=== PATIENT | female | born 1990 | race Caucasian/White ===

== ENCOUNTER 2022-06-29 06:02 | Emergency (ER) | payer OTHER, SELFPAY ==
--- NOTE | 2022-06-29 06:41 | PC.NURSE ---
covid swab sent to lab
[2022-06-29 06:49] VITALS: BP 120/75; PULSE 99; RESP 17; TEMP 37.1; O2SAT 97
[2022-06-29 06:56] VITALS: RESP 17
--- NOTE | 2022-06-29 07:01 | ED.GENADULT ---
HPI - General Adult General Chief complaint: Unspecified Stated complaint: possible Covid Time Seen by Provider: 06/29/22 07:01 Related Data Home Medications Medication Instructions Recorded Confirmed cyclobenzaprine 10 mg tablet 10 mg PO DAILY 06/29/22 06/29/22 famotidine 20 mg tablet 20 mg PO DAILY 06/29/22 06/29/22 Allergies Allergy/AdvReac Type Severity Reaction Status Date / Time No Known Allergies Allergy Verified 06/29/22 06:38 Course Vital Signs Vital signs: Vital Signs Temperature 37.1 C 06/29/22 06:49 Pulse Rate 99 06/29/22 06:49 Respiratory Rate 17 06/29/22 06:49 Blood Pressure 120/75 06/29/22 06:49 Pulse Oximetry 97 06/29/22 06:49 Oxygen Delivery Room Air 06/29/22 06:49 Temperature 37.1 C 06/29/22 06:49 Pulse Rate 99 06/29/22 06:49 Respiratory Rate 17 06/29/22 06:56 Blood Pressure 120/75 06/29/22 06:49 Pulse Oximetry 97 06/29/22 06:49 Oxygen Delivery Room Air 06/29/22 06:49 Medical Decision Making Vital Signs Vital Signs: Vital Signs Temperature 37.1 C 06/29/22 06:49 Pulse Rate 99 06/29/22 06:49 Respiratory Rate 17 06/29/22 06:49 Blood Pressure 120/75 06/29/22 06:49 Pulse Oximetry 97 06/29/22 06:49 Oxygen Delivery Room Air 06/29/22 06:49 Temperature 37.1 C 06/29/22 06:49 Pulse Rate 99 06/29/22 06:49 Respiratory Rate 17 06/29/22 06:56 Blood Pressure 120/75 06/29/22 06:49 Pulse Oximetry 97 06/29/22 06:49 Oxygen Delivery Room Air 06/29/22 06:49 Lab Data Labs: Lab Results 06/29/22 Range/Units 06:27 SARS-CoV-2 RNA (RT-PCR) Pending Discharge Plan Discharge Prescriptions: No Action cyclobenzaprine 10 mg tablet 10 mg PO DAILY famotidine 20 mg tablet 20 mg PO DAILY Follow-up/Referrals: UNKNOWN,DOCTOR [Primary Care Provider] -
--- NOTE | 2022-06-29 07:02 | ED.URI ---
HPI - URI/Sore Throat General Chief Complaint: Unspecified Stated Complaint: possible Covid Time Seen by Provider: 06/29/22 07:01 Source: patient and RN notes reviewed Mode of arrival: ambulatory Limitations: no limitations History of Present Illness MD elicited complaint: cough and nasal congestion Onset (ago): day(s) (2) Consistency: intermittent Severity: moderate Description of mucous: clear Able to tolerate fluids by mouth: Yes Exacerbating factors: nothing Relieving factors: nothing Associated symptoms: chills, myalgias, headache, nasal congestion and cough Treatments prior to arrival: none Related Data Home Medications Medication Instructions Recorded Confirmed cyclobenzaprine 10 mg tablet 10 mg PO DAILY 06/29/22 06/29/22 famotidine 20 mg tablet 20 mg PO DAILY 06/29/22 06/29/22 Allergies Allergy/AdvReac Type Severity Reaction Status Date / Time No Known Allergies Allergy Verified 06/29/22 06:38 Review of Systems Review of Systems: All systems reviewed & are unremarkable except as noted in HPI and below PMFSH Past Medical History Medical History (Updated 06/29/22 @ 07:18 by Michel Carbajal MD) GERD (gastroesophageal reflux disease) Muscle spasm Surgical History Surgical History (Updated 06/29/22 @ 07:10 by Michel Carbajal MD) No pertinent past surgical history Social History Social History (Updated 06/29/22 @ 07:10 by Michel Carbajal MD) Tobacco type: e-cigarettes/vaping Exam Const: General: healthy appearing, no acute distress and alert Nutritional Appearance: well nourished Orientation/consciousness: patient oriented x3 Limitations: no limitations HENMT: Head: normal to inspection Ears: external ears normal Eyes: Conjunctivae: conjunctivae normal Pupils: Equal, round and reactive pupils present EOM: EOMs intact bilaterally Neck: Neck: normal visual inspection Resp: Effort & Inspection: normal respiratory effort Auscultation: clear to auscultation bilaterally Cardio: Rate: regular rate Rhythm: regular rhythm GI: GI Palp: Yes Soft to palpation and No Tenderness to palpation present (GI) Auscultation: normal bowel sounds Back/Spine/Pelvis: Cervical Spine: cervical ROM normal Thoracic/Lumbar Spine: thoraco-lumbar ROM normal Skin: General skin exam: normal color Rashes: no rashes Neuro: General: patient oriented x3, moves all extremities, no focal motor deficits and CN's II-XI intact bilaterally Speech: normal speech Gait exam (Neuro): Normal gait present Extrem: General: normal to inspection and no clubbing, cyanosis or edema Psych: Mental Status: mental status grossly normal Affect: normal affect Attitude: cooperative Course Vital Signs Vital signs: Vital Signs Temperature 37.1 C 06/29/22 06:49 Pulse Rate 99 06/29/22 06:49 Respiratory Rate 17 06/29/22 06:49 Blood Pressure 120/75 06/29/22 06:49 Pulse Oximetry 97 06/29/22 06:49 Oxygen Delivery Room Air 06/29/22 06:49 Temperature 37.1 C 06/29/22 06:49 Pulse Rate 99 06/29/22 06:49 Respiratory Rate 17 06/29/22 06:56 Blood Pressure 120/75 06/29/22 06:49 Pulse Oximetry 97 06/29/22 06:49 Oxygen Delivery Room Air 06/29/22 06:49 MDM - URI/Sore Throat Lab Data Labs: Lab Results 06/29/22 Range/Units 06:27 SARS-CoV-2 RNA (RT-PCR) Positive A (Negative) Discharge Plan Discharge Clinical Impression: COVID-19 Patient Disposition: Home, Self-Care Condition: Stable Instructions: COVID-19 (Coronavirus Disease 2019) (ED) Additional Instructions: Drink plenty of fluids Gatorade or all sport or Powerade for electrolyte replacement. Tylenol Motrin as needed for fever body aches. self quarantine for 5 days then wear a mask every wary ago when you leave the house for another 5 days. Prescriptions: New ondansetron HCl 4 mg tablet 4 mg PO Q8H PRN (Reason: nausea and vomiting) Qty: 10 0RF No Action cyclobenzaprine 10 mg tablet
--- NOTE | 2022-06-29 07:10 | PC.NURSE ---
nurse to nurse report completed with ERIKA Garcia
[2022-06-29 07:14] LABS: SARS-CoV-2 RNA PCR Positive (Negative)
== END 2022-06-29 07:30 | disposition home or self-care (01) ==
PROVIDERS: Emergency Medicine; Emergency Provider Emergency Medicine
DX: U07.1 COVID-19 (principal); K21.9 Gastro-esophageal reflux disease without esophagitis; F17.290 Nicotine dependence, other tobacco product, uncomplicated
CPT/HCPCS: 99283; C9803; U0003; U0005

== ENCOUNTER 2022-07-06 13:13 | Emergency (ER) | payer OTHER, SELFPAY ==
[2022-07-06 13:23] VITALS: BP 110/64; PULSE 58; RESP 16; TEMP 36.3; O2SAT 98
[2022-07-06 13:41] LABS: Basophils Absolute Auto 0.01 K/mm3 (0.00-0.10); Basophils Percent Auto 0.2 % (0.0-1.0); Eosinophils Absolute Auto 0.03 K/mm3 (0.02-0.50); Eosinophils Percent Auto 0.5 % (1.0-6.0); Hematocrit 42.6 % (35.0-49.0); Hemoglobin 13.9 g/dL (12.0-15.0); Immature Granulocyte Absolute 0.02 K/mm3 (0.00-0.00); Immature Granulocyte Percent A 0.3 % (0.0-0.0); Lymphocytes Absolute Auto 1.44 K/mm3 (1.10-4.50); Lymphocytes Percent Auto 22.7 % (18.0-42.0); Mean Corpuscular HGB Conc 32.6 g/dL (32.0-36.0); Mean Corpuscular Hemoglobin 29.8 pg (27.0-31.0); Mean Corpuscular Volume 91.2 fL (78.0-102.0); Mean Platelet Volume 12.2 fl (9.2-11.8); Monocytes Absolute Auto 0.27 K/mm3 (0.10-0.90); Monocytes Percent Auto 4.3 % (2.0-11.0); Neutrophils Absolute Auto 4.6 K/mm3 (1.7-7.2); Platelet Count Result 173 K/mm3 (150-420); Red Blood Count 4.67 M/mm3 (4.20-5.40); Red Cell Distribution Width 12.8 % (11.6-14.4); White Blood Count 6.4 K/mm3 (4.8-10.8)
[2022-07-06] MEDS: SODIUM CHLORIDE 0.9% IV 1,000 ML 999 ML IV CONT (13:47)
[2022-07-06] MEDS: ONDANSETRON INJ 4 MG/2 ML VIAL IV PUSH (13:47)
[2022-07-06 13:57] LABS: Alanine Aminotransferase 114 U/L (14-59); Albumin Level 3.9 g/dL (3.4-5.0); Alkaline Phosphatase 67 U/L (46-116); Anion Gap 8 mmol/L (8-16); Aspartate Amino Transferase 32 U/L (15-37); Bilirubin,Total 0.4 mg/dL (0.00-1.00); Blood Urea Nitrogen 11 mg/dL (7-18); Calcium 9.3 mg/dL (8.5-10.1); Carbon Dioxide 27 mmol/L (21-32); Chloride 105 mmol/L (98-108); Estimated Glomerular Filt Rate > 60; Glucose 99 mg/dL (70-99); Osmolality Calculated 289 mOsm/kg (285-295); Potassium 3.6 mmol/L (3.5-5.1); Sodium 140 mmol/L (136-145); Total Protein 7.1 g/dL (6.4-8.2)
--- NOTE | 2022-07-06 14:05 | ED.DIZZY ---
HPI - Dizziness General Chief Complaint: Dizziness Stated Complaint: positive for covid 10 days ago dizzy and fatigue Time Seen by Provider: 07/06/22 13:16 Source: patient Mode of arrival: ambulatory Limitations: no limitations History of Present Illness HPI Narrative: This is a 31-year-old female that is status post COVID date 10 and did return to work but had feeling lightheaded in [place] with no fever or chills, with some nausea with no vomiting no abdominal pain no chest pain no shortness of breath no dysuria no hematuria no flank pain. MD elicited complaint: dizziness and lightheadedness Onset (ago): hour(s) Timing: gradual onset Severity: mild Description: lightheadedness Exacerbating factors: change in body position Relieving factors: rehydration Associated symptoms: nausea Related Data Home Medications Medication Instructions Recorded Confirmed cyclobenzaprine 10 mg tablet 10 mg PO DAILY 06/29/22 07/06/22 famotidine 20 mg tablet 20 mg PO DAILY 06/29/22 07/06/22 Allergies Allergy/AdvReac Type Severity Reaction Status Date / Time No Known Allergies Allergy Verified 07/06/22 13:27 Review of Systems Review of Systems: All systems reviewed & are unremarkable except as noted in HPI and below PMFSH Past Medical History Medical History GERD (gastroesophageal reflux disease) Muscle spasm Surgical History Surgical History No pertinent past surgical history Social History Social History Tobacco type: e-cigarettes/vaping Exam Const: General: healthy appearing and no acute distress HENMT: Head: normal to inspection Mouth: Yes Normal oral and palatal mucosa present Eyes: Conjunctivae: conjunctivae normal Direct Ophthalmoscopy: no photophobia Neck: Neck: normal visual inspection, no lymphadenopathy and no meningeal signs Chest: Chest palpation & inspection: normal inspection of the chest Resp: Effort & Inspection: normal respiratory effort Auscultation: clear to auscultation bilaterally Cardio: Rate: regular rate Rhythm: regular rhythm GI: Auscultation: normal bowel sounds Urinary Catheter: Urinary Catheter: patent and draining Back/Spine/Pelvis: Back: no CVA tenderness Skin: General skin exam: normal color Rashes: no rashes Wounds: no wounds Neuro: General: patient oriented x3, moves all extremities and no meningeal signs Extrem: General: normal to inspection and no clubbing, cyanosis or edema Psych: Mental Status: mental status grossly normal Affect: normal affect Course Course Emergency Course: Patient received IV fluids IV Zofran and Tylenol her symptoms have improved blood work was reviewed with patient. Vital Signs Vital signs: Vital Signs Temperature 36.3 C L 07/06/22 13:23 Pulse Rate 58 L 07/06/22 13:23 Respiratory Rate 16 07/06/22 13:23 Blood Pressure 110/64 07/06/22 13:23 Pulse Oximetry 98 07/06/22 13:23 Oxygen Delivery Room Air 07/06/22 13:23 Temperature 36.3 C L 07/06/22 13:23 Pulse Rate 58 L 07/06/22 13:23 Respiratory Rate 16 07/06/22 13:23 Blood Pressure 110/64 07/06/22 13:23 Pulse Oximetry 98 07/06/22 13:23 Oxygen Delivery Room Air 07/06/22 13:23 MDM - Dizziness Lab Data Result diagrams: 07/06/22 13:36 07/06/22 13:36 Labs: Lab Results 07/06/22 07/06/22 Range/Units 13:36 13:36 WBC 6.4 (4.8-10.8) K/mm3 RBC 4.67 (4.20-5.40) M/mm3 Hgb 13.9 (12.0-15.0) g/dL Hct 42.6 (35.0-49.0) % MCV 91.2 (78.0-102.0) fL MCH 29.8 (27.0-31.0) pg MCHC 32.6 (32.0-36.0) g/dL RDW 12.8 (11.6-14.4) % Plt Count 173 (150-420) K/mm3 MPV 12.2 H (9.2-11.8) fl Immature Gran % (Auto) 0.3 H (0.0-0.0) % Neut % (Auto) 72.0 H (50.0-70.0) % Lymph % (Auto) 22.7 (18.0-42.0) % [place] % (Auto)
[2022-07-06 14:46] VITALS: BP 137/61; PULSE 58; RESP 16; TEMP 36.4; O2SAT 98
== END 2022-07-06 14:47 | disposition home or self-care (01) ==
PROVIDERS: Emergency Provider Emergency Medicine; PCP Family Medicine
DX: E86.0 Dehydration (principal); R11.2 Nausea with vomiting, unspecified
CPT/HCPCS: 36415; 80053; 85025; 96361; 96374; 96375; 99284; J0131; J2405; J7030

== ENCOUNTER 2022-10-24 09:12 | Emergency (ER) | payer OTHER, SELFPAY ==
--- NOTE | ~2022-10-24 | XR_ITS ---
EXAMINATION: XR chest 1V portable INDICATION: Chest congestion TECHNIQUE: Portable AP chest at 0202 hours COMPARISON: None available FINDINGS: The lungs are free of acute opacities. No pleural effusion or pneumothorax. The cardiomedia stinal silhouette is normal. The visualized bones and soft tissues are unremarkable. IMPRESSION: 1. No acute cardiopulmonary abnormality. Reviewed, dictated and finalized at location [facility]
[2022-10-24 09:12] VITALS: BP 114/74; PULSE 81; RESP 18; TEMP 37.1; O2SAT 99
--- NOTE | 2022-10-24 09:14 | ED.URI ---
HPI - URI/Sore Throat General Chief Complaint: Upper Respiratory Infection Stated Complaint: fever, chest congestion Time Seen by Provider: 10/24/22 09:14 Source: patient Mode of arrival: ambulatory History of Present Illness HPI Narrative: 32-year-old female with a history of GERD, muscle spasms, COVID positive in June of 2022 presents to the ER with -- fever -- chest congestion -- Cough with purulent sputum -- dizziness on standing up she did a home COVID test which was noted to be negative yesterday. MD elicited complaint: fever, cough and nasal congestion Onset (ago): day(s) ( started yesterday.) Able to tolerate fluids by mouth: Yes Exacerbating factors: nothing Associated symptoms: denies other symptoms, fever and nasal congestion Treatments prior to arrival: none Related Data Allergies Allergy/AdvReac Type Severity Reaction Status Date / Time No Known Allergies Allergy Verified 10/24/22 09:20 Review of Systems Review of Systems: All systems reviewed & are unremarkable except as noted in HPI and below Constitutional: Constitutional: Reports as per HPI and Reports no additional constitutional complaints Eyes: Eyes: Reports as per HPI and Reports no additional eye complaints ENT: Reports system reviewed and no additional complaints, except as documented, Reports as per HPI and Reports nasal congestion Cardiovascular: Cardiovascular: Reports as per HPI and Reports no additional cardiovascular complaints Respiratory: Respiratory: Reports as per HPI, Reports no additional respiratory complaints, Reports chest congestion, Reports cough and Reports pain with cough Gastrointestinal: Gastrointestinal: Reports as per HPI and Reports no additional gastrointestinal complaints Genitourinary: Genitourinary: Reports no additional female genitourinary complaints and Reports as per HPI Comments: patient is currently on control. Musculoskeletal: Musculoskeletal: Reports no additional musculoskeletal complaints and Reports as per HPI Integumentary/Breasts: Skin/Breast: Reports system reviewed and no additional complaints, except as docu and Reports as per HPI Neurologic: Reports system reviewed and no additional complaints, except as documented and Reports as per HPI Psychiatric: Psychiatric: Reports no additional psychiatric complaints and Reports abnormal sleep pattern Endocrine: Endocrine: Reports no additional endocrine complaints and Reports as per HPI Hematologic/Lymphatic: Hematologic/Lymphatic: Reports no additional hematologic/lymphatic complaints and Reports as per HPI Allergic/Immunologic: Allergic/Immunologic: Reports no additional allergic/immunologic complaints and Reports as per HPI [facility] Past Medical History Medical History GERD (gastroesophageal reflux disease) Muscle spasm Surgical History Surgical History No pertinent past surgical history Social History Social History Tobacco type: e-cigarettes/vaping Exam Const: General: cooperative, healthy appearing and comfortable HENMT: Head: normal to inspection Ears: hearing grossly normal bilaterally Face/Nose/Sinus: Normal external nose present Face and sinus: normal facial exam and sinuses nontender Mouth: Yes Normal oral and palatal mucosa present Throat: posterior oropharynx normal Eyes: General: appearance normal, both eyes and all related structures Neck: Neck: normal visual inspection, full ROM, no lymphadenopathy and no meningeal signs Chest: Chest palpation & inspection: normal inspection of the chest Resp: Effort & Inspection: normal respiratory effort Auscultation: clear to auscultation bilaterally Cardio: Jugular venous distension: no JVD Rate: regular rate Rhythm: regular rhythm Heart sounds: S1 normal heart sound present and S2 normal heart sound
[2022-10-24 09:15] VITALS: BP 114/74; PULSE 81; RESP 18; TEMP 37.1; O2SAT 99
[2022-10-24 09:44] LABS: Basophils Absolute Auto 0.01 K/mm3 (0.00-0.10); Basophils Percent Auto 0.2 % (0.0-1.0); Eosinophils Absolute Auto 0.04 K/mm3 (0.02-0.50); Eosinophils Percent Auto 0.9 % (1.0-6.0); Hematocrit 42.2 % (35.0-49.0); Hemoglobin 13.7 g/dL (12.0-15.0); Immature Granulocyte Absolute 0.02 K/mm3 (0.00-0.00); Immature Granulocyte Percent A 0.4 % (0.0-0.0); Lymphocytes Absolute Auto 0.85 K/mm3 (1.10-4.50); Lymphocytes Percent Auto 18.9 % (18.0-42.0); Mean Corpuscular HGB Conc 32.5 g/dL (32.0-36.0); Mean Corpuscular Hemoglobin 30.1 pg (27.0-31.0); Mean Corpuscular Volume 92.7 fL (78.0-102.0); Mean Platelet Volume 10.8 fl (9.2-11.8); Monocytes Absolute Auto 0.36 K/mm3 (0.10-0.90); Neutrophils Absolute Auto 3.2 K/mm3 (1.7-7.2); Neutrophils Percent Auto 71.6 % (50.0-70.0); Platelet Count Result 165 K/mm3 (150-420); Red Blood Count 4.55 M/mm3 (4.20-5.40); Red Cell Distribution Width 13.1 % (11.6-14.4); White Blood Count 4.5 K/mm3 (4.8-10.8)
[2022-10-24 09:49] LABS: Add Urine Microscopic? YES; Appearance Urine Clear (Clear); Bilirubin Urine Negative (Negative); Blood Urine 1+ (Negative); Color Urine Yellow (Yellow); Glucose Urine UA Negative (Negative); Ketones Urine Negative (Negative); Leukocyte Esterase Ur Negative LEU/UL (Negative); Nitrate Urine Negative (Negative); Protein Urine Negative (Negative); Specific Grav Ur 1.025 (1.010-1.020); Urobilinogen Urine 0.2 mg/dL (0.2-1.0)
[2022-10-24 09:52] LABS: Pregnancy On Board Control Positive; Urine Pregnancy Test Negative
[2022-10-24 09:57] LABS: Bacteria Urine 1+ /hpf; Squamous Epithelial Cell Urine Few /hpf (Few); WBC Urine None seen /hpf (0-3)
[2022-10-24 09:58] LABS: Mucus Urine Few /lpf
[2022-10-24 10:01] LABS: Alanine Aminotransferase 34 U/L (14-59); Albumin Level 3.8 g/dL (3.4-5.0); Alkaline Phosphatase 56 U/L (46-116); Anion Gap 7 mmol/L (8-16); Aspartate Amino Transferase 14 U/L (15-37); Bilirubin,Total 0.3 mg/dL (0.00-1.00); Blood Urea Nitrogen 10 mg/dL (7-18); Calcium 8.9 mg/dL (8.5-10.1); Carbon Dioxide 27 mmol/L (21-32); Chloride 107 mmol/L (98-108); Estimated CRCL calculation 87 ml/min; Estimated Glomerular Filt Rate > 60; Glucose 106 mg/dL (70-99); Osmolality Calculated 291 mOsm/kg (285-295); Sodium 141 mmol/L (136-145); Total Protein 7.1 g/dL (6.4-8.2)
[2022-10-24 10:03] LABS: Lactic Acid Reflex 0.8 mmol/L (0.4-2.0)
[2022-10-24 10:04] LABS: Influenza Control Valid (Valid)
[2022-10-24 10:41] VITALS: BP 110/68; PULSE 83; RESP 16; TEMP 37.4; O2SAT 98
== END 2022-10-24 10:48 | disposition home or self-care (01) ==
PROVIDERS: Emergency Provider Internal Medicine Critical Care Medicine; PCP Family Medicine
DX: J06.9 Acute upper respiratory infection, unspecified (principal); J20.9 Acute bronchitis, unspecified; F17.209 Nicotine dependence, unspecified, with unspecified nicotine-induced disorders
CPT/HCPCS: 36415; 71045; 80053; 81001; 81025; 83605; 85025; 87804; 99283

== ENCOUNTER 2022-11-04 17:13 | Emergency (ER) | payer OTHER, SELFPAY ==
[2022-11-04 17:19] VITALS: BP 117/73; PULSE 83; RESP 16; TEMP 36.7; O2SAT 99
[2022-11-04 17:39] LABS: Basophils Absolute Auto 0.01 K/mm3 (0.00-0.10); Basophils Percent Auto 0.2 % (0.0-1.0); Eosinophils Absolute Auto 0.03 K/mm3 (0.02-0.50); Eosinophils Percent Auto 0.5 % (1.0-6.0); Hemoglobin 14.5 g/dL (12.0-15.0); Immature Granulocyte Absolute 0.02 K/mm3 (0.00-0.00); Immature Granulocyte Percent A 0.3 % (0.0-0.0); Lymphocytes Absolute Auto 1.33 K/mm3 (1.10-4.50); Lymphocytes Percent Auto 20.7 % (18.0-42.0); Mean Corpuscular Volume 91.1 fL (78.0-102.0); Mean Platelet Volume 10.6 fl (9.2-11.8); Monocytes Absolute Auto 0.34 K/mm3 (0.10-0.90); Monocytes Percent Auto 5.3 % (2.0-11.0); Neutrophils Absolute Auto 4.7 K/mm3 (1.7-7.2); Platelet Count Result 242 K/mm3 (150-420); Red Blood Count 4.83 M/mm3 (4.20-5.40); Red Cell Distribution Width 12.9 % (11.6-14.4); White Blood Count 6.4 K/mm3 (4.8-10.8)
[2022-11-04 17:43] LABS: Add Urine Microscopic? YES; Appearance Urine Slightly Cloudy (Clear); Bilirubin Urine Negative (Negative); Blood Urine 3+ (Negative); Color Urine Yellow (Yellow); Glucose Urine UA Negative (Negative); Ketones Urine Negative (Negative); Leukocyte Esterase Ur Negative LEU/UL (Negative); Nitrate Urine Negative (Negative); Protein Urine Negative (Negative); Specific Grav Ur >= 1.030 (1.010-1.020); Urobilinogen Urine 0.2 mg/dL (0.2-1.0)
--- NOTE | 2022-11-04 17:46 | ED.GENADULT ---
HPI - General Adult General Chief complaint: Nausea/Vomiting/Diarrhea Stated complaint: abdominal pain Time Seen by Provider: 11/04/22 17:20 History of Present Illness HPI narrative: Cassie is a 32F with a PMH of cholecystectomy that presented to the ED with abdominal cramping, watery diarrhea, and non bloody vomiting for 4 days. She has poor PO intake and is not getting better so she came in. No fevers, dyspnea or chest pain. Related Data Allergies Allergy/AdvReac Type Severity Reaction Status Date / Time No Known Allergies Allergy Verified 11/04/22 17:33 Review of Systems Review of Systems: All systems reviewed & are unremarkable except as noted in HPI and below PMFSH Past Medical History Medical History GERD (gastroesophageal reflux disease) Muscle spasm Surgical History Surgical History No pertinent past surgical history Social History Social History Tobacco type: e-cigarettes/vaping Exam Const: General: healthy appearing and no acute distress Nutritional Appearance: well nourished Orientation/consciousness: patient oriented x3 HENMT: Head: normal to inspection Ears: external ears normal Face/Nose/Sinus: Normal external nose present Face and sinus: normal facial exam Eyes: Conjunctivae: conjunctivae normal Pupils: Equal, round and reactive pupils present EOM: EOMs intact bilaterally Neck: Neck: normal visual inspection Resp: Effort & Inspection: normal respiratory effort, not labored and no retractions Auscultation: clear to auscultation bilaterally Cardio: Rate: tachycardic Rhythm: abnormal rhythm irregularly irregular GI: Inspection: non-distended GI Palp: Yes Soft to palpation and No Tenderness to palpation present (GI) Skin: General skin exam: normal color Rashes: no rashes Neuro: General: patient oriented x3 Cranial nerves: Yes Nystagmus not present Speech: normal speech Extrem: General: normal to inspection Psych: Mental Status: mental status grossly normal Affect: normal affect Attitude: cooperative Course Course Emergency Course: Ordered labs, viral testing and fluids and dicyclomine Labs showed a normal white count, normal INR, slight ALT elevation but otherwise unremarkable chemistries, and the UA only showed 3+ blood but no nitrates or nitrites Abdominal pain was only mildly better with dicyclomine so a GI cocktail was ordered. Vital Signs Vital signs: Vital Signs Temperature 98.1 F 11/04/22 17:19 Pulse Rate 83 11/04/22 17:19 Respiratory Rate 16 11/04/22 17:19 Blood Pressure 117/73 11/04/22 17:19 Pulse Oximetry 99 11/04/22 17:19 Oxygen Delivery Room Air 11/04/22 17:19 Temperature 98.1 F 11/04/22 17:19 Pulse Rate 83 11/04/22 17:19 Respiratory Rate 16 11/04/22 17:19 Blood Pressure 117/73 11/04/22 17:19 Pulse Oximetry 99 11/04/22 17:19 Oxygen Delivery Room Air 11/04/22 17:19 Medical Decision Making Vital Signs Vital Signs: Vital Signs Temperature 98.1 F 11/04/22 17:19 Pulse Rate 83 11/04/22 17:19 Respiratory Rate 16 11/04/22 17:19 Blood Pressure 117/73 11/04/22 17:19 Pulse Oximetry 99 11/04/22 17:19 Oxygen Delivery Room Air 11/04/22 17:19 Temperature 98.1 F 11/04/22 17:19 Pulse Rate 83 11/04/22 17:19 Respiratory Rate 16 11/04/22 17:19 Blood Pressure 117/73 11/04/22 17:19 Pulse Oximetry 99 11/04/22 17:19 Oxygen Delivery Room Air 11/04/22 17:19 Lab Data 11/04/22 17:34 11/04/22 17:34 Labs: Lab Results 11/04/22 11/04/22 11/04/22 Range/Units 17:34 17:34 17:34 WBC 6.4 (4.8-10.8) K/mm3 RBC 4.83 (4.20-5.40) M/mm3 Hgb 14.5 (12.0-15.0) g/dL Hct 44.0 (35.0-49.0) % MCV 91.1 (78.0-102.0) fL MCH 30.0 (27.0-31.0) pg MCHC 33.0 (32.0-36.0)
[2022-11-04 17:48] LABS: Bacteria Urine Trace /hpf; Mucus Urine Few /lpf; Squamous Epithelial Cell Urine Moderate /hpf (Few); WBC Urine 0-3 /hpf (0-3)
[2022-11-04 17:52] LABS: INR 1.1; Prothrombin Time 11.7 Seconds (9.50-12.10)
[2022-11-04 18:01] LABS: Lactic Acid Reflex 0.5 mmol/L (0.4-2.0)
[2022-11-04 18:10] LABS: Alanine Aminotransferase 61 U/L (14-59); Albumin Level 3.9 g/dL (3.4-5.0); Alkaline Phosphatase 69 U/L (46-116); Anion Gap 7 mmol/L (8-16); Aspartate Amino Transferase 30 U/L (15-37); Bilirubin,Total 0.4 mg/dL (0.00-1.00); Blood Urea Nitrogen 18 mg/dL (7-18); CRP 0.6 mg/dL (0.0-0.9); Calcium 8.7 mg/dL (8.5-10.1); Carbon Dioxide 27 mmol/L (21-32); Chloride 105 mmol/L (98-108); Estimated CRCL calculation 83 ml/min; Estimated Glomerular Filt Rate > 60; Glucose 91 mg/dL (70-99); Lipase 21 U/L (16-77); Osmolality Calculated 289 mOsm/kg (285-295); Potassium 3.6 mmol/L (3.5-5.1); Sodium 139 mmol/L (136-145); Total Protein 7.3 g/dL (6.4-8.2)
[2022-11-04 18:15] LABS: Influenza A QL RT-PCR Negative (Negative); Influenza B QL RT-PCR Negative (Negative); SARS-CoV-2 RNA PCR Negative (Negative)
[2022-11-04] MEDS: LACTATED RINGERS 1,000 ML 999 ML IV CONT (18:22)
[2022-11-04] MEDS: DICYCLOMINE HCL INJ 20 MG/2 ML VIAL IM (18:26)
[2022-11-04 18:27] LABS: RSV RNA, RT-PCR Negative (Negative)
[2022-11-04] MEDS: MAG HYDROX/ALUMINUM HYD/SIMETH 30 ML, PHENobarb/HYOSCY/ATROPINE/SCOP 32.4 MG, LIDOCAINE... PO (19:19)
[2022-11-04 19:51] VITALS: BP 110/68; PULSE 80; RESP 20; TEMP 37.1; O2SAT 100
== END 2022-11-04 19:52 | disposition home or self-care (01) ==
PROVIDERS: Emergency Provider Family Medicine; PCP Family Medicine
DX: K52.9 Noninfective gastroenteritis and colitis, unspecified (principal); F17.290 Nicotine dependence, other tobacco product, uncomplicated; Z20.822 Contact with and (suspected) exposure to COVID-19
CPT/HCPCS: 36415; 80053; 81001; 83605; 83690; 85025; 85610; 86140; 87637; 96360; 96372; 99283; A9270; J0500; J7120